=== PATIENT | male | born 1935 | race Caucasian/White ===

== ENCOUNTER 2020-04-08 09:03 | Inpatient (IN) | payer MEDICARE, OTHER, SELFPAY ==
[2020-04-08] VITALS (16 sets, daily range): BP systolic 122–205; BP diastolic 50–179; PULSE 78–118; RESP 14–20; TEMP 36.9–38.6; O2SAT 92–98; BMI 25.4; BMI 25.0
--- NOTE | 2020-04-08 07:30 | CT_ITS ---
We are attempting to reach an attending provider to discuss findings. An addendum with communication details will be sent when the communication is complete. STUDY: CT BRAIN WITHOUT CONTRAST REASON FOR EXAM: Male, 84 years old. CVA RADIATION DOSAGE (If Supplied By Facility): CTDIvol = ( 44.99 ) mGy, DLP = ( 846.73 ) mGycm TECHNIQUE: Transaxial CT imaging of the brain was performed without administration of intravenous contrast material. Individualized dose optimization techniques were used for this CT. COMPARISON: No relevant priors. FINDINGS: Normal soft tissue structures. Normal calvarium. Normal size ventricles and extra-axial spaces for the patient''s age. Bilateral white matter microangiopathic ischemic changes of the cerebral hemispheres. A 3 mm hyperdense nodule near the foramen of Rivas, possibly small colloid cyst. Normal basal ganglia and thalami. Normal brainstem. Normal cerebellum. There is no intracranial hemorrhage. There are no findings of an acute ischemic infarction. Normal visualized paranasal sinuses. CT/Brain/Head without Contrast IMPRESSION: Age-related changes. Small hyperdense nodule near the foramen of Rivas, possibly a small colloid cyst. Electronically Signed: Luis Fernando Kapoor DO at 19:44 EDT Tel [phone], Service support ,
--- NOTE | 2020-04-08 09:21 | EKG12_ITS ---
Test Reason : DYSRHYTHMIA Blood Pressure : / mmHG Vent. Rate : 085 BPM Atrial Rate : 085 BPM P-R Int : 222 ms QRS Dur : 090 ms QT Int : 374 ms P-R-T Axes : 034 -43 055 degrees QTc Int : 445 ms Sinus rhythm with 1st degree A-V block Left axis deviation Inferior infarct , age undetermined Abnormal ECG Confirmed by WENDI MCDONALD, ISAMAR ([id number]), newspaper editor MARTHA MARTINEZ ([id number] on 04/09/2020 1:18:14 PM Referred By: ANJUM Confirmed By:ISAMAR ADAME MD
--- NOTE | 2020-04-08 09:21 | RAD_ITS ---
STUDY: X-RAY CHEST REASON FOR EXAM: Male, 84 years old. NAUSEA, VOMITING, WEAKNESS TECHNIQUE: Frontal and lateral views COMPARISON: None. FINDINGS: The lungs are clear and expanded. There is no demonstrated pleural abnormality. Normal size heart. Normal mediastinum and emily. Normal visualized pulmonary arteries. Calcified aortic arch and descending thoracic aorta. Normal visualized thoracic spine. Normal visualized ribs, clavicles, and shoulders. There is no demonstrated abnormality of the visualized soft tissue structures of the upper abdomen. RAD/Chest PA and Lateral IMPRESSION: Normal x-ray examination of the chest. Electronically Signed: Luis Fernando Kapoor DO at 12:48 EDT Tel [phone], Service support ,
--- NOTE | 2020-04-08 09:22 | ED.VIS.GEN ---
History of Present Illness Informant: Patient, Automotive Machinist Onset: Days - 3 days Context: Gradual Onset Timing: Continuous Quality: Generalized weakness Location: Entire body Current Severity: Severe Maximum Severity: Severe Worsened by: Activity Relieved by: Nothing Associated Symptoms: Urinary frequency and urgency Narrative: 84-year-old male history of hypertension hyperlipidemia and insulin-dependent diabetes mellitus presents to the emergency department with 3 days of worsening generalized weakness. He feels like he is not able to do his normal activity level due to fatigue and weakness. He states his entire body feels weak. He endorses worsening urinary frequency and urgency. He was admitted here 3-1/2 years ago for UTI he feels similar today. He has had nausea and 1-2 episodes of nonbloody emesis per day. No diarrhea. No fevers. No hematemesis coffee-ground emesis, melena or hematochezia. He is not lightheaded or dizzy. No chest pain or shortness of breath. He does have a mild dry cough. No contacts with coronavirus patients. No recent travel. No recent antibiotic use. No back pain. No leg pain or swelling. Prior similar symptoms: Yes Recent Illness/Hospitalization: No <Yvan Villalba - Last Filed: 04/08/20 12:17> <Abe Reillyo - Last Filed: 04/08/20 13:07> Chief Complaint: Nausea/Vomiting Past Medical History Prior records reviewed: Yes Past Medical History: - - Hypertension, hyperlipidemia, type 2 diabetes mellitus on insulin, BPH Surgical History: noncontributory Lives: With Family Smoking Status: Former smoker Alcohol: None Drugs: None <Yvan Villalba - Last Filed: 04/08/20 12:17> <Abe Reillyo - Last Filed: 04/08/20 13:07> - Allergies and Home Meds Allergies/Adverse Reactions: Allergies No Known Allergies Allergy (Verified 04/08/20 09:11) Primary Care Physician: [facility] Doctor,Out of [Primary Care Provider] - 2 Days Review of Systems All systems negative except as indicated General: Reports: Malaise. Denies: Chills, Fever, Sweats Eyes: Denies: Visual changes - bilaterally, Diplopia ENT: Denies: Rhinorrhea, Sore throat Cardiovascular: Denies: Chest pain, Palpitations Respiratory: Denies: Dyspnea, Cough, Dyspnea on exertion Gastrointestinal: Reports: Nausea, Vomiting. Denies: Abdominal pain, Diarrhea, Melena, Hematochezia Genitourinary: Reports: Frequency. Denies: Dysuria, Hematuria Musculoskeletal: Denies: Back pain, Extremity Pain Skin: Denies: Rash, Wounds Neurological: Denies: Headache, Weakness, Numbness <Yvan Villalba - Last Filed: 04/08/20 12:17> Physical Exam Vital Signs/Narrative: Vital Signs Temp Pulse Resp BP Pulse Ox 04/08/20 09:12 98.9 F 86 20 H 186/93 H 95 04/08/20 09:08 98.9 F 86 20 H 186/93 H 95 Inital Vital Signs reviewed: Yes General: Well nourished, Well developed, No Acute Distress Head: Normocephalic, Atraumatic Eyes: Perrl, EOMI ENT: Moist mucous membranes, No rhinorrhea Neck: Supple, Nontender Cardiovascular: Regular rate, Regular rhythm, No murmurs Respiratory: No distress, CTA bilaterally, Chest nontender Abdomen: Soft, Nontender, Nondistended, Normal bowel sounds Back: Nontender, Normal Inspection Extremities: Nontender, No edema Skin: Normal color, No rash Neurological: Alert, Oriented x3, Cranial nerves II-XII grossly intact, Normal Strength, Normal Sensation Psychological: Normal affect, Normal Mood <Yvan Villalba - Last Filed: 04/08/20 12:17> Vital Signs/Narrative: Vital Signs Temp Pulse Resp BP Pulse Ox 04/08/20 09:12 98.9 F 86 20 H 186/93 H 95 04/08/20 09:08 98.9 F 86 20 H 186/93 H 95 <Reilly,True - Last Filed: 04/08/20 13:07> Diagnostic/Tx/Re-eval Chest X-Ray - ED: 2 View, Read by ED Physician, No Acute Disease - Rhythm Strip Rhythm Strip: Sinus Rhythm Rate: 80 Ectopy: None - EKG Initial EKG Interpretation: Sinus Rhythm, No Acute Injury Pattern Prior: Unchanged - Medical Decision Making On arrival the patient has normal stable vital signs. His EKG was sinus rhythm. 85 bpm. Prolonged DE interval. No ischemic change. Unchanged from previous EKG. Laboratory work-up including CBC CMP and lipase was remarkable for a white blood cell count of 16. Lactic acid 1.9. Urinalysis shows 1+ bacteria with 5-10 red blood cells, glucose and protein. Chest x-ray was unremarkable. This was interpreted independently by the emergency department physician. Repeat exam patient feels improved after fluids and IV Zofran. He is tolerating by mouth. His repeat abdominal exam is soft and nontender. Urine culture was sent. He was given a dose of IV Zofran. We will discharge him with a prescription for both Keflex and Zofran and he was advised to follow-up closely as an outpatient with his primary care in the next 1 to 2 days or return to the emergency department for worsening symptoms which were discussed. <Yvan Villalba - Last Filed: 04/08/20 12:17> - Medical Decision Making I did perform an independent history physical. Patient presents with dysuria and frequency. He is diabetic. He denies drinking more fluids. He denies weight loss. He denies fever, chills or night sweats. Does report generalized malaise. He states he had a similar presentation 3 to 4 years ago and had a urinary tract infection. He denies history of prostatitis. He denies tenesmus or perianal discomfort. He denies headache, visual, ocular auditory symptoms. Denies neck pain or neck stiffness. He denies cardiac respiratory symptoms. He denies nausea or vomiting. Patient appears not well. Does not appear toxic. HEENT exam is unremarkable. Lungs are clear to auscultation. Heart is regular. Abdomen is soft nontender. There is no CVA tenderness noted. Lower extremity exam is unremarkable. Neuro exam is nonfocal. Patient's white count is elevated. He does have bacteria noted. Urine culture was obtained. He received a dose of Rocephin in the emergency department. He was discharged home with appropriate home-going instructions. <True Reilly - Last Filed: 04/08/20 13:07> ED Disposition <Yvan Villalba - Last Filed: 04/08/20 12:17> <True Reilly - Last Filed: 04/08/20 13:07> - Plan for ED Patient: Disposition: Home or Assisted Living Diagnosis: UTI (urinary tract infection), Uncontrolled type 2 diabetes mellitus, Leukocytosis Instructions: ED CYSTITIS Male Adult Prescriptions: Cephalexin [Keflex] 500 mg PO Q12 #14 cap Prescription Printed Ondansetron [Zofran Odt] 4 mg PO Q8H PRN PRN #15 tab PRN Reason: Nausea Prescription Printed Referrals: [facility],Out of [Primary Care Provider] - 2 Days
--- NOTE | 2020-04-08 09:33 | NURSING ---
NO OLD EKGS
[2020-04-08] MEDS: Ondansetron 4 MG/2 ML Vial IV ×2 (09:59→14:39)
[2020-04-08 10:13] LABS: Mucous, Urine 0 SEEN /hpf (<or=2+); Squamous Epithelial Cells - UA 0 SEEN /hpf (0-5); White Blood Cells 0 SEEN /hpf (0-5)
[2020-04-08 10:20] LABS: Absolute Lymphocyte Count 0.44 X10^3/uL (0.83-4.51); Absolute Neutrophil Count 15.1 X10^3/uL (2.0-7.7); Basophil# 0.02 X10^3/uL; Basophil% 0.1 % (0-1); Color, Urine Yellow (Yellow); Differential Indicated SCAN CRITERIA MET; Eosinophil# 0.01 X10^3/uL; Eosinophils% 0.1 % (0-5); Glucose, Dipstick 1000 mg/dl (Normal); Hematocrit 44.9 % (40-54); Hemoglobin 14.9 g/dL (13.0-16.5); Ketone-Dipstick 5 mg/dl (Negative); Leukocyte Esterase-Dipstick 25 /ul (Negative); Lymphocyte # 0.44 X10^3/ul (4.0); Lymphocyte % 2.6 % (19-41); Mean Corp Hgb Conc 33.2 g/dL (32-36); Mean Corpuscular Hgb 31.4 pg (27.0-32.0); Mean Corpuscular Volume 94.7 fL (80-94); Mean Platelet Vol. 11.8 fl (6.2-12.0); Monocyte# 1.15 X10^3/uL; Monocyte% 6.8 % (0-10); NRBC Flagged by Analyzer 0 % (0-5); Neutrophil # 15.12 X10^3/uL (2.7-7.7); Neutrophil % 89.6 % (47-70); Nitrite-Dipstick Negative (Negative); Occult Blood-Urine 150 /ul (Negative); POSITIVE DIFFERENTIAL YES; Platelet Count 153 K/mm3 (150-450); Protein-Dipstick 100 mg/dl (Negative); RBC Distribution Width CV 15.1 % (11.6-14.6); RBC Distribution Width SD 52.2 fl (35.1-43.9); Red Blood Count 4.74 M/mm3 (4.6-6.2); Specific Gravity, Urine 1.015 (1.002-1.030); Urine Bilirubin Dipstick Negative (Negative); Urine Clarity Sl. Cloudy (Clear); Urine Urobilinogen Normal (Normal); White Blood Count 16.9 K/mm3 (4.4-11.0)
[2020-04-08 10:31] LABS: Bacteria 1+ /hpf (None Seen); Red Blood Cells-Urine 5-10 SEEN /hpf (0-5)
[2020-04-08 10:38] LABS: AST(SGOT) 37 U/L (15-37); Alanine Aminotransfer ALT/SGPT 32 U/L (16-61); Albumin, Serum 3.9 g/dL (3.2-5.0); Alkaline Phosphatase 46 U/L (45-117); Anion Gap 7 (5-15); BUN 23 mg/dL (7-18); BUN/Creat Ratio 13.1 RATIO (10-20); Calcium,Total 9.5 mg/dL (8.5-10.1); Chloride 104 mmol/L (98-107); Creatinine, Serum 1.75 mg/dL (0.70-1.30); EST Glomerular Filtration Rate 40 mL/min (>60); Est Glom Filt Rate - Afr Amer 48 mL/min (>60); Estimated Creatinine Clearance 27.85 ml/min; Globulin 4.1 g/dL (2.2-4.2); Glucose 227 mg/dL (74-106); Lipase 108 U/L (73-393); Potassium 4.1 mmol/L (3.5-5.1); Sodium Level 137 mmol/L (136-145)
[2020-04-08 11:09] LABS: Lactic Acid 1.9 mmol/L (0.4-1.9)
[2020-04-08 11:09] LABS: Differential Comment SCANNED
[2020-04-08] MEDS: Ceftriaxone 1 GM/50 ML BAG IV (12:40)
[2020-04-08] MEDS: Acetaminophen 325 MG Tablet 650 MG PO (12:40)
--- NOTE | 2020-04-08 13:51 | NURSING ---
DR ARREAGA FOR DR BACK
--- NOTE | 2020-04-08 13:56 | NURSING ---
DR ARREAGA IN ROOM
--- NOTE | 2020-04-08 14:09 | HP.PCM_ITS ---
Problem List (1) Stage III chronic kidney disease Status: Chronic (2) Benign prostatic hyperplasia Status: Chronic (3) Hypertension Status: Chronic (4) Hyperlipidemia Status: Chronic (5) Type 2 diabetes mellitus Status: Chronic (6) SIRS (systemic inflammatory response syndrome) Status: Acute (7) Acute cystitis Status: Suspected History of Present Illness Date of Admission: 04/08/20 Chief Complaint: Weakness, nausea and frequency. The patient is a 84 year old M with past medical history as mentioned above presented to the emergency room because of weakness, nausea and urinary frequency. Symptoms started 3 days ago with weakness, generalized, profound weakness, having difficulty ambulating, associated with nausea without vomiting and without relieving or aggravating factors. He mentioned that he has been having urinary frequency, goes to the bathroom to urinate more than usual. He denied hematuria or foul-smelling urine. He denied fever at home but while in the emergency department, he had a fever of 101.1 Fahrenheit. He reported postnasal drip. He denied cough or sputum production. He denied recent travel or sick contacts. He lives with his at his home. He reported couple of times of diarrhea today. Denied abdominal pain. He has history of type 2 diabetes mellitus, has been on insulin and Victoza but his blood glucose not well controlled. He has history of hypertension and he has been on lisinopril and Bystolic. In the emergency department, his blood pressure was elevated. He had a history of benign prostatic hypertrophy and he has been on Flomax. In the emergency department, initially, he was afebrile. Later, he developed fever of 101.9 Fahrenheit, blood pressure became elevated, heart rate was 98 and respiratory rate was 20, pulse ox was 95% on room air. Routine blood work was remarkable for leukocytosis with neutrophilia, BUN of 23, creatinine 4.75 which is chronic. LFT and lipase were normal. EKG revealed normal sinus rhythm and first-degree AV block, no acute segment changes. Urinalysis revealed cloudy urine, negative for nitrite, there was only 25 leukocyte esterase, 0 WBCs and 1+ bacteria. Chest x-ray showed no acute findings. COVID-19 PCR was negative. He is being admitted for SIRS due to probable acute cystitis. Past Medical History Past Medical History (Chronic Problems): Chronic Problems Stage III chronic kidney disease (Chronic) Benign prostatic hyperplasia (Chronic) Hypertension (Chronic) Hyperlipidemia (Chronic) Type 2 diabetes mellitus (Chronic) Allergies No Known Allergies Allergy (Verified 04/08/20 09:11) Home Medications: Ambulatory Orders Medication Instructions Recorded Fenofibrate [Tricor] 145 mg PO DAILY 10/04/16 Nebivolol HCl [Bystolic (Beta 5 mg PO DAILY 10/04/16 Saniya)] Tamsulosin HCl [Flomax] 0.4 mg PO DAILY@1730 #30 capsule 10/07/16 Cephalexin [Keflex] 500 mg PO Q12 #14 cap 04/08/20 Insulin Degludec [Tresiba 20 unit SQ DAILY 04/08/20 Flextouch U-100] Liraglutide [Victoza] 1.8 mg SQ DAILY 04/08/20 Lisinopril [Zestril] 5 mg PO DAILY 04/08/20 Ondansetron [Zofran Odt] 4 mg PO Q8H PRN PRN #15 tab 04/08/20 Surgical History: no surgical history Psychiatric History: No pertinent psych hx Lives: Spouse/ Significant Other, With Family Smoking Status: Former smoker Alcohol: None Drugs: None - *Family History Maternal History Items: No pertinent history Paternal History Items: No pertinent history Review of Systems Constitutional: Reports: Anorexia, Fever, Weakness, Fatigue. Denies: Chills Eyes: Denies: Blurred vision, Double vision, Drainage, Redness HEENT: Reports: Post Nasal Drip. Denies: Difficulty Hearing, Dysphasia, Ear Pain, Eye Pain, Sore Throat Cardiovascular: Denies: Chest Pain, Claudication, Chest Pressure, Heaviness, Light Headedness, Palpitations, Paroxysmal Noc. Dyspnea, Syncope Respiratory: Denies: Cough, Pleuritic Pain, Shortness of Breath, Sputum p roduction, Wheezing Gastrointestinal: Reports: Diarrhea, Nausea, Vomiting. Denies: Abdominal Pain, Constipation Genitourinary: Reports: Frequency. Denies: Dysuria, Hematuria Musculoskeletal: Denies: Arm Pain, Back Pain, Foot Pain Skin: Denies: Dryness, Rash Neurological: Denies: Balance problems, Blurred vision, Double vision, Slurred speech, Confusion, Incoordination, Numbness Psychiatric: Denies: Anxiety, Depression Endocrine: Denies: Change in Body Habitus, Polydipsia, Polyuria VTE Information - Inpt Only VTE Present on Admission: No VTE Mechan Device Prophylaxis: None VTE Pharm Prophylaxis ordered?: Yes Patient Problems: Active and Suspected Problems Acute cystitis (Suspected) SIRS (systemic inflammatory response syndrome) (Acute) - Physical Exam Vitals/I&O's: Vital Signs Temp Pulse Resp BP Pulse Ox 101.1 F H 98 20 H 177/79 H 95 04/08/20 13:48 04/08/20 13:48 04/08/20 13:48 04/08/20 13:48 04/08/20 13:48 Oxygen Delivery Method Room Air Weight: 157 lb 10.088 oz Body Mass Index (BMI) 25.4 Finger Stick Blood Glucose 307 Intake and Output for Last 24 Hours 04/06/20 04/07/20 04/08/20 23:59 23:59 23:59 Intake Total 500 / 500 Balance 500 / 500 General: Alert, Oriented x3, Cooperative, No apparent distress HEENT: Atraumatic, PERRLA, EOMI, Normocephalic Oral: Moist Mucosa, No Gingival or Mucosal Lesions/ Ulcerations Neck: Supple, No JVD, Negative Carotid Bruits, Trachea Midline, Thyroid Normal Size and Texture Lungs: Clear to auscultation, Normal air movement, No rhonchi, No wheeze, No rales, Diminished Cardiovascular: Regular rate, Regular Rhythm, Normal S1, Normal S2, PMI Normal Abdomen: Bowel Sounds Present, Soft, Non Tender, Non-Distended, No Hepato- splenomegaly Extremities: No clubbing, No cyanosis, No edema Skin: No rashes, No breakdown Lymphatic: No Cervical, Supraclavicular, or Inguinal Adenopathy Neurological: Cranial nerves II-XII grossly intact, Motor Exam 5/5 strength throughout Psych/Mental Status: Normal Affect, Appropriate, Alert and oriented to time, place, person, mood and affect Laboratory Results 04/08/20 09:55: WBC 16.9 H, RBC 4.74, Hgb 14.9, Hct 44.9, MCV 94.7 H, MCH 31.4, MCHC 33.2, RDW Std Deviation 52.2 H, RDW Coeff of Bia 15.1 H, Plt Count 153, MPV 11.8, Immature Gran % (Auto) 0.800, Neut % (Auto) 89.6 H, Lymph % (Auto) 2.6 L, [place] % (Auto) 6.8, Eos % (Auto) 0.1, Baso % (Auto) 0.1, Absolute Neuts (auto) 15.1 H, Absolute Lymphs (auto) 0.44 L, Nucleated RBC % 0, Differential Comment SCANNED 04/08/20 09:55: Sodium 137, Potassium 4.1, Chloride 104, Carbon Dioxide 26.0, Anion Gap 7, BUN 23 H, Creatinine 1.75 H, Estim Creat Clear Calc 27.85, Est GFR (MDRD) Af Amer 48 L, Est GFR (MDRD) Non-Af 40 L, BUN/Creatinine Ratio 13.1, Glucose 227 H, Calcium 9.5, Total Bilirubin 1.30 H, AST 37, ALT 32, Alkaline Phosphatase 46, Total Protein 8.0, Albumin 3.9, Globulin 4.1, Albumin/Globulin Ratio 1.0, Lipase 108 04/08/20 09:55: Urine Color Yellow, Urine Clarity Sl. Cloudy, Urine pH 6.0, Ur Specific [place] 1.015, Urine Protein 100 H, Urine Glucose (UA) 1000 H, Urine Ketones 5 H, Urine Occult Blood 150 H, Urine Nitrite Negative, Urine Bilirubin Negative, Urine Urobilinogen Normal, Ur Leukocyte Esterase 25 H, Urine RBC 5-10 SEEN, Urine WBC 0 SEEN, Ur Squamous Epith Cells 0 SEEN, Urine Bacteria 1+, Urine Mucus 0 SEEN 04/08/20 10:40: Lactic Acid 1.9 Laboratory Tests 04/08/20 04/08/20 04/08/20 Range/Units 10:40 09:55 09:55 WBC (4.4-11.0) K/mm3 RBC (4.6-6.2) M/mm3 Hgb (13.0-16.5) g/dL Hct (40-54) % MCV (80-94) fL MCH (27.0-32.0) pg MCHC (32-36) g/dL RDW Std Deviation (35.1-43.9) fl RDW Coeff of Bia (11.6-14.6) % Plt Count (150-450) K/mm3 MPV (6.2-12.0) fl Immature Gran % (Auto) (0.0-0.9) % Neut % (Auto) (47-70) % Lymph % (Auto) (19-41) % [place] % (Auto) (0-10) % Eos % (Auto) (0-5) % Baso % (Auto) (0-1) % Absolute Neuts (auto) (2.0-7.7) X10^3/uL Absolute Lymphs (auto) (0.83-4.51) X10^3/uL Nucleated RBC % (0-5) % Differential Comment Sodium 137 (136-145) mmol/L Potassium 4.1 (3.5-5.1) mmol/L Chloride 104 (98-107) mmol/L Carbon Dioxide 26.0 (21.0-32.0) mmol/L Anion Gap 7 (5-15) BUN 23 H (7-18) mg/dL Creatinine 1.75 H (0.70-1.30) mg/dL Estim Creat Clear Calc 27.85 ml/min Est GFR (MDRD) Af Amer 48 L (>60) mL/min Est GFR (MDRD) Non-Af 40 L (>60) mL/min BUN/Creatinine Ratio 13.1 (10-20) RATIO Glucose 227 H (74-106) mg/dL Lactic Acid 1.9 (0.4-1.9) mmol/L Calcium 9.5 (8.5-10.1) mg/dL Total Bilirubin 1.30 H (0.20-1.00) mg/dL AST 37 (15-37) U/L ALT 32 (16-61) U/L Alkaline Phosphatase 46 (45-117) U/L Total Protein 8.0 (6.4-8.2) g/dL Albumin 3.9 (3.2-5.0) g/dL Globulin 4.1 (2.2-4.2) g/dL Albumin/Globulin Ratio 1.0 (0.9-2.4) RATIO Lipase 108 (73-393) U/L Urine Color Yellow (Yellow) Urine Clarity Sl. Cloudy (Clear) Urine pH 6.0 (5.0 - 8.0) Ur Specific [place] 1.015 (1.002-1.030) Urine Protein 100 H (Negative) mg/dl Urine Glucose (UA) 1000 H (Normal) mg/dl Urine Ketones 5 H (Negative) mg/dl Urine Occult Blood 150 H (Negative) /ul Urine Nitrite Negative (Negative) Urine Bilirubin Negative (Negative) mg/dL Urine Urobilinogen Normal (Normal) mg/dl Ur Leukocyte Esterase 25 H (Negative) /ul Urine RBC 5-10 SEEN (0-5) /hpf Urine WBC 0 SEEN (0-5) /hpf Ur Squamous Epith Cells 0 SEEN (0-5) /hpf Urine Bacteria 1+ (None Seen) /hpf Urine Mucus 0 SEEN (<or=2+) /hpf 04/08/20 Range/Units 09:55 WBC 16.9 H (4.4-11.0) K/mm3 RBC 4.74 (4.6-6.2) M/mm3 Hgb 14.9 (13.0-16.5) g/dL Hct 44.9 (40-54) % MCV 94.7 H (80-94) fL MCH 31.4 (27.0-32.0) pg MCHC 33.2 (32-36) g/dL RDW Std Deviation 52.2 H (35.1-43.9) fl RDW Coeff of Bia 15.1 H (11.6-14.6) % Plt Count 153 (150-450) K/mm3 MPV 11.8 (6.2-12.0) fl Immature Gran % (Auto) 0.800 (0.0-0.9) % Neut % (Auto) 89.6 H (47-70) % Lymph % (Auto) 2.6 L (19-41) % [place] % (Auto) 6.8 (0-10) % Eos % (Auto) 0.1 (0-5) % Baso % (Auto) 0.1 (0-1) % Absolute Neuts (auto) 15.1 H (2.0-7.7) X10^3/uL Absolute Lymphs (auto) 0.44 L (0.83-4.51) X10^3/uL Nucleated RBC % 0 (0-5) % Differential Comment SCANNED Sodium (136-145) mmol/L Potassium (3.5-5.1) mmol/L Chloride (98-107) mmol/L Carbon Dioxide (21.0-32.0) mmol/L Anion Gap (5-15) BUN (7-18) mg/dL Creatinine (0.70-1.30) mg/dL Estim Creat Clear Calc ml/min Est GFR (MDRD) Af Amer (>60) mL/min Est GFR (MDRD) Non-Af (>60) mL/min BUN/Creatinine Ratio (10-20) RATIO Glucose (74-106) mg/dL Lactic Acid (0.4-1.9) mmol/L Calcium (8.5-10.1) mg/dL Total Bilirubin (0.20-1.00) mg/dL AST (15-37) U/L ALT (16-61) U/L Alkaline Phosphatase (45-117) U/L Total Protein (6.4-8.2) g/dL Albumin (3.2-5.0) g/dL Globulin (2.2-4.2) g/dL Albumin/Globulin Ratio (0.9-2.4) RATIO Lipase (73-393) U/L Urine Color (Yellow) Urine Clarity (Clear) Urine pH (5.0 - 8.0) Ur Specific [place] (1.002-1.030) Urine Protein (Negative) mg/dl Urine Glucose (UA) (Normal) mg/dl Urine Ketones (Negative) mg/dl Urine Occult Blood (Negative) /ul Urine Nitrite (Negative) Urine Bilirubin (Negative) mg/dL Urine Urobilinogen (Normal) mg/dl Ur Leukocyte Esterase (Negative) /ul Urine RBC (0-5) /hpf Urine WBC (0-5) /hpf Ur Squamous Epith Cells (0-5) /hpf Urine Bacteria (None Seen) /hpf Urine Mucus (<or=2+) /hpf Clinical Impression(s) from Imaging Studies Chest X-Ray 04/08/20 09:21 IMPRESSION: Normal x-ray examination of the chest. Electronically Signed: Luis Fernando Kapoor DO at 12:48 EDT Tel [phone], Service support , Assessment/Plan All Active Problems SIRS (systemic inflammatory response syndrome) (Acute) This is an 84 years old male patient presented to the emergency room because of 3 days history of weakness, nausea and dysuria, found to have SIRS attributed to probable acute cystitis and he is being admitted for treatment. #1 SIRS/probable acute cystitis: Initially, patient was afebrile but later, he developed fever of 101.1 Fahrenheit, heart rate was 98, does have leukocytosis with neutrophilia. Urinalysis and chest x-ray reviewed as above. Patient with history of UTI with possible pyelonephritis 3 years ago. Lactic acid was normal. COVID-19 PCR was negative. [facility], urine culture, blood culture, IV fluids, IV Zofran PRN, Tylenol PRN, start empiric IV Rocephin, awaiting COVID-19 PCR, repeat CBC and BMP tomorrow morning, PT OT evaluation and treatment. #2 type 2 diabetes mellitus: Hemoglobin A1c was 10.3% on September,. Blood glucose on admission was 227. Plan: ADA diet, Accu-Cheks, insulin sliding scale, continue Tresiba, hold Victoza, check hemoglobin A1c. #3 hypertension: Blood pressure is elevated, continue lisinopril and Bystolic, start IV lisinopril. #4 stage III chronic kidney disease: Creatinine was 1.73 years ago, today it is 1.7 as well. Stable at baseline. No blood work in the system since 2017. Plan to monitor. #5 benign prostatic hypertrophy: Continue Flomax. #6 DVT prophylaxis: Subcu heparin. This note was generated with [employer] dictation software. It may contain incorrect words, spelling, and punctuation that were not noted in checking the note before signing. OBSV E&M: 95004 Initial observation care L3
--- NOTE | 2020-04-08 14:13 | NURSING ---
323 SIRS, PROBABLE ACUTE CYSTITIS WHITLEY
[2020-04-08 15:25] LABS: Probe Check PASS; Specimen Processing Control PASS
--- NOTE | 2020-04-08 15:59 | ED.RN ---
attempt to contact pt's , unable to get a hold of her at this time
[2020-04-08] MEDS: 0.9% Normal Saline 1,000 ML 100 ML IV ×2 (17:00→23:21)
[2020-04-08 17:56] LABS: Bedside Glucose 164 mg/dL (70-110)
--- NOTE | 2020-04-08 18:25 | NURSING ---
Aide called this nurse and charge nurse in the room. When aide rounded, pt was on the floor. Pt just arrived to floor from ED and was set up to eat dinner. Pt states he was trying to get up but does not know why. This nurse had explained how to call for help just approx 10 min prior to fall and showed him the call light. pt seemed like he understood. pt was incont of stool in his attends. this nurse performed neuro assessment and pt very agitated with quesitons.
[2020-04-08] MEDS: Insulin Lispro 100 UNIT/ML INSULN.PEN SC (18:33)
--- NOTE | 2020-04-08 18:38 | NURSING ---
Dr. Lane aware of fall. No orders , continue plan of care and continue to monitor pt.
--- NOTE | 2020-04-08 18:57 | EKG12_ITS ---
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 Rate : 102 BPM Atrial Rate : 102 BPM P-R Int : 210 ms QRS Dur : 088 ms QT Int : 356 ms P-R-T Axes : 052 -32 061 degrees QTc Int : 463 ms Sinus rhythm with 1st degree A-V block Left axis deviation Borderline Prolonged QT Confirmed by ALEN MCDONALD, SAIRA ([id number]), editor [employer] MARTHA MARTINEZ ([id number]) on 04/18/2020 8:38:33 AM Referred By: PREETI Confirmed By:JANICE LOWRY MD
--- NOTE | 2020-04-08 19:00 | CT_ITS ---
STUDY: CTA HEAD AND NECK WITH CONTRAST REASON FOR EXAM: Male, 84 years old. STROKE RADIATION DOSAGE (If Supplied By Facility): CTDIvol = ( 13.73 ) mGy, DLP = ( 695.58 ) mGycm TECHNIQUE: CT angiography was performed with a multi-detector CT scanner. Data acquisition was obtained from the skull base through the vertex following intravenous administration of 100ML ISOVUE 370. MIP images were reconstructed from the axial data set. Post-processing of the angiographic images was performed, with multiplanar reformation and 3D reconstruction. Individualized dose optimization techniques were used for this CT. COMPARISON: No relevant priors. FINDINGS: Normal bilateral petrous carotid arteries. Normal right cavernous carotid artery with a normal supraclinoid bifurcation. Normal left cavernous carotid artery with a normal supraclinoid bifurcation. Normal right A1 segments of the anterior cerebral artery. Normal left A1 segments of the anterior cerebral artery. Normal intact anterior communicating artery (ACOM). Normal bilateral A2 segments of the anterior cerebral arteries. Normal right M1 and M2 segments of the middle cerebral arteries, with a normal M1 bifurcation. Normal left M1 and M2 segments of the middle cerebral arteries, with a normal M1 bifurcation. Hypoplastic posterior communicating arteries (PCOM). Normal bilateral vertebral arteries. Minimal focal narrowing at the mid segment of the basilar artery with a normal basilar bifurcation. The visualized bilateral superior cerebellar (SCA) arteries are normal. Normal bilateral P1, P2 and visualized P3 segments of the posterior cerebral arteries. There is no demonstrated aneurysm of the round [place] of [place]. There is no demonstrated abnormality of the visualized brain. AORTIC ARCH: Calcified visualized aortic arch. Normal origins of the brachiocephalic, left common carotid, and left subclavian arteries. RIGHT CAROTID ARTERIES: Normal right common carotid artery (CCA). Mild atherosclerotic calcifications at the right common carotid bulb. Normal origin of the right internal carotid (ICA) artery without a hemodynamically significant stenosis. Normal visualized cervical portion of the right internal carotid artery. Normal origin of the right external carotid artery (ECA). LEFT CAROTID ARTERIES: Normal left common carotid artery (CCA). Mild atherosclerotic calcifications at the left common carotid bulb. Normal origin of the left internal carotid (ICA) artery without a hemodynamically significant stenosis. Normal visualized cervical portion of the left internal carotid artery. Normal origin of the left external carotid artery (ECA). VERTEBRAL ARTERIES: Normal bilateral vertebral arteries. CT/CTA Head AND Neck W/ Contrast IMPRESSION: Minimal focal narrowing at the mid segment of the basilar artery. Hypoplastic posterior communicating arteries. Mild atherosclerotic calcifications at carotid bulbs without hemodynamically significant stenosis. N.B. : The above information has been verbally conveyed by Luis Fernando Kapoor DO to Ar Lopez RN, on 04/08/2020 20:03:09 (ET). Electronically Signed: Luis Fernando Kapoor DO at 19:53 EDT Tel [phone], Service support ,
[2020-04-08] MEDS: hydrALAZINE 20 MG/ML Vial 10 MG IV (19:15)
--- NOTE | 2020-04-08 19:15 | NURSING ---
Pt in imaging for stat CTA
[2020-04-08 19:21] LABS: Bedside Glucose 204 mg/dL (70-110)
[2020-04-08 19:22] LABS: Hemoglobin A1c 6.8 % (3.8-5.6)
--- NOTE | 2020-04-08 19:32 | NURSING ---
Gaby patients is on the phone with Dr. Chandler and is aware of that her fell and having stroke like symptoms and is in Radiology at this time.
--- NOTE | 2020-04-08 20:10 | PCM.PN.BLA ---
Progress Note Time: 18:50: Rapid response was called for patient who was admitted this afternoon. Reason for rapid was progressive lethargy. Patient had gotten up from the bed and had falling down. He appeared confused. He was said to be well at the time of admission. He got to the floor around 4:30 PM. He answered questions appropriately. He was found on the floor around 6:25pm. He was last seen by his nurse at 6:15pm. His blood pressure at the bedside showed 205/179, this was repeated and showed 202/93. Patient was lethargic. Unresponsive to commands compared to previous. Falls back readily to sleep. Upon both verbal and sternal stimulation, patient will open eyes to answer questions. Blood glucose was 204. Patient had a slight left facial droop, unable to lift his right upper and lower extremity, right upper extremity more than right lower extremity. Stroke alert was called at 1854. NIHSS score was 20. TPA form filled out Patient was sent to CT scan, CT of the head and neck also requested. Whilst waiting for tele-neurology, repeat NIHSS score was 11. Patient appeared to be more awake. He was able to move his extremities. His right upper extremity was now back to normal as well as the left lower extremity. Discussed with [facility] tele-neurology; patient not a candidate for TPA. His repeat blood pressure was 188/115 We will transfer patient to PCU, follow-up on stroke protocol, follow-up on CT of the head as well as CTA of the head and neck. MRI of the brain, 2D echo, lipid profile in a.m. STROKE Vital Signs/Narrative: Vital Signs Temp Pulse Resp BP Pulse Ox 04/08/20 19:50 117 H 20 H 188/115 H 96 04/08/20 19:35 118 H 16 181/95 H 96 04/08/20 19:20 117 H 155/71 H 93 04/08/20 19:15 96 129/50 H 04/08/20 19:00 100 202/93 H 04/08/20 18:54 101.4 F H 96 205/179 H 96 04/08/20 17:29 98.8 F 78 18 179/74 H 98 04/08/20 16:11 99.2 F H 87 14 137/50 H
--- NOTE | 2020-04-08 20:20 | NURSING ---
spoke with Wyatt, pts step son whom states that pt has fallen frequently sometimes multiple times a day but when asked pt in admit questions if he fell in last 3 months pt said no. Wyatt also stated that Mr. Sanchez per step daughter in law acts like he has stroke symptoms in the last month as she is a retired nurse. Both above things were mentioned to dr. Chandler.
[2020-04-08 21:13] LABS: International Normalized Ratio 1.2; Prothrombin Time (Protime)PT. 14.6 SECONDS (11.7-14.9)
[2020-04-08 21:53] LABS: Thyroid Stim Hormone (TSH) 3.03 uIU/mL (0.358-3.74)
[2020-04-08] MEDS: Menthol/Lanolin/Calamine/Znox 113 GM Tube 1 APPLIC TOPICAL (23:10)
[2020-04-08] MEDS: Heparin Injection (Vial) 5,000 UNIT/ML VIAL 5000 UNIT SC (23:20)
[2020-04-08] MEDS: 0.9% Saline Lock 10 ML Syringe IV (23:26)
[2020-04-08 23:31] LABS: Bedside Glucose 259 mg/dL (70-110)
[2020-04-09] VITALS (13 sets, daily range): BP systolic 97–182; BP diastolic 48–91; PULSE 64–103; RESP 14–20; TEMP 36.8–39.3; O2SAT 94–99; BMI 25.0
[2020-04-09] MEDS: Ondansetron 4 MG/2 ML Vial IV (03:22)
[2020-04-09] MEDS: 0.9% Saline Lock 10 ML Syringe IV (03:23)
[2020-04-09] MEDS: Acetaminophen 650 MG Suppository RECTAL (04:59)
[2020-04-09] MEDS: Heparin Injection (Vial) 5,000 UNIT/ML VIAL 5000 UNIT SC ×3 (05:52→21:45)
[2020-04-09 05:58] LABS: Absolute Lymphocyte Count 0.46 X10^3/uL (0.83-4.51); Absolute Neutrophil Count 12.4 X10^3/uL (2.0-7.7); Basophil# 0.02 X10^3/uL; Basophil% 0.1 % (0-1); Eosinophil# 0.13 X10^3/uL; Eosinophils% 0.9 % (0-5); Hematocrit 40.6 % (40-54); Hemoglobin 13.3 g/dL (13.0-16.5); Lymphocyte # 0.46 X10^3/ul (4.0); Lymphocyte % 3.2 % (19-41); Mean Corp Hgb Conc 32.8 g/dL (32-36); Mean Corpuscular Hgb 31.6 pg (27.0-32.0); Mean Corpuscular Volume 96.4 fL (80-94); Monocyte# 1.33 X10^3/uL; Monocyte% 9.2 % (0-10); NRBC Flagged by Analyzer 0 % (0-5); Neutrophil # 12.42 X10^3/uL (2.7-7.7); Neutrophil % 85.9 % (47-70); POSITIVE DIFFERENTIAL YES; Platelet Count 126 K/mm3 (150-450); RBC Distribution Width CV 15.6 % (11.6-14.6); RBC Distribution Width SD 54.8 fl (35.1-43.9); Red Blood Count 4.21 M/mm3 (4.6-6.2); White Blood Count 14.5 K/mm3 (4.4-11.0)
[2020-04-09 06:22] LABS: Differential Indicated SCAN CRITERIA MET
[2020-04-09 06:32] LABS: Anion Gap 7 (5-15); BUN 29 mg/dL (7-18); BUN/Creat Ratio 15.7 RATIO (10-20); Calcium,Total 8.4 mg/dL (8.5-10.1); Chloride 109 mmol/L (98-107); Cholesterol 117 mg/dL (200); Creatinine, Serum 1.85 mg/dL (0.70-1.30); EST Glomerular Filtration Rate 37 mL/min (>60); Est Glom Filt Rate - Afr Amer 45 mL/min (>60); Estimated Creatinine Clearance 26.34 ml/min; Glucose 172 mg/dL (74-106); High Density Lipoprotein 27 mg/dL; Potassium 3.3 mmol/L (3.5-5.1); Sodium Level 140 mmol/L (136-145); Triglycerides 166 mg/dL; Very Low Density Lipoprotein 33 mg/dL (5-40)
[2020-04-09 06:55] LABS: Differential Comment SCANNED
[2020-04-09 07:00] LABS: Bedside Glucose 163 mg/dL (70-110)
--- NOTE | 2020-04-09 07:45 | NURSING ---
This RN was asked to round and assess patient with MD at bedside. After evaluation by and this RN, Dr. Sloan determined that the patient was not confused and seemed to have all the appropriate recollection and memory of the events since the patients admission to the hospital. The patient was adamant with MD and this RN that he did not fall while on [facility] and that he did not have a stroke and is unsure why we are treatment him as such. He feels as though the story of him falling has been either made up or misconstrued. He continued to express his frustration with not being able to eat d/t need for Speech therapy evaluation. Upon evaluation by MD it was noted that the patient does have a very small facial droop detected on the right side of his mouth, however the patient sates that he talks out of the side of his mouth and it always looks that way. The patient is easily able to lift/raise the right side of his mouth when prompted. and this RN discussed with patient his testing results up to this point and it was recommended to him to have MRI to R/O stroke. After this discussion and explanation by MD, patient expressed his refusal to have MRI and felt that it was not necessary. told RN to DC MRI, ECHO, NIHSS assessments, repeat bedside dysphagia screen and if he passes then allow him to eat.
--- NOTE | 2020-04-09 08:20 | PCM.PROGNOTE ---
Patient Problems: Active and Suspected Problems Acute cystitis (Suspected) SIRS (systemic inflammatory response syndrome) (Acute) Subjective: Chief complaint: Follow-up after admission for SIRS attributed to probable acute cystitis. Patient seen and examined. After admission last evening and according to the nursing staff, patient was found on the floor, confused. Shortly after, he became lethargic, rapid response team called. Patient was lethargic and drowsy according to nursing staff. He had minimal facial droop on the right side. There was no focal weakness. He is still having spikes of fever, blood pressure is borderline but improved, pulse ox is 99% on 2 L. Today, patient is alert and noted x3. Actually, he is frustrated about what happened yesterday and he stated that none of the mentioned above happened. He stated that he has been lucid and know exactly what is going on. He states that he never been confused or disoriented. He stated that he did not fill from the bed yesterday. He mentioned that he speaks out of the left corner of his mouth which is usual for him. He was able to lift. Right corner of his mouth and there was no facial droop. He mentioned that he is frustrated about this trauma happened yesterday evening. In talking about stroke, he refused to go for MRI. - Physical Exam Vitals/I&O's: Vital Signs Temp Pulse Resp BP Pulse Ox 98.3 F 64 20 H 115/48 L 99 04/09/20 07:21 04/09/20 07:21 04/09/20 07:21 04/09/20 07:21 04/09/20 07:21 Oxygen Flow Rate (L/min) 2 Oxygen Delivery Method Nasal Cannula Weight: 155 lb Body Mass Index (BMI) 25.0 Finger Stick Blood Glucose 204 Intake and Output for Last 24 Hours 04/07/20 04/08/20 04/09/20 23:59 23:59 23:59 Intake Total 1185 / 1185 1236.67 / 1236.67 Output Total 200 / 200 Balance 1185 / 1185 1036.67 / 1036.67 General: Alert, Oriented x3, Cooperative, No apparent distress HEENT: Atraumatic, PERRLA, EOMI, Normocephalic Oral: Moist Mucosa, No Gingival or Mucosal Lesions/ Ulcerations Neck: Supple, No JVD, Negative Carotid Bruits, Trachea Midline, Thyroid Normal Size and Texture Lungs: Clear to auscultation, Normal air movement, No rhonchi, No wheeze, No rales, Diminished Cardiovascular: Regular rate, Regular Rhythm, Normal S1, Normal S2, PMI Normal Abdomen: Bowel Sounds Present, Soft, Non Tender, Non-Distended, No Hepato-splenomegaly Extremities: No clubbing, No cyanosis, No edema Skin: No rashes, No breakdown Lymphatic: No Cervical, Supraclavicular, or Inguinal Adenopathy Neurological: Cranial nerves II-XII grossly intact, Motor Exam 5/5 strength throughout Psych/Mental Status: Normal Affect, Appropriate, Alert and oriented to time, place, person, mood and affect Laboratory Results 04/08/20 09:55: WBC 16.9 H, RBC 4.74, Hgb 14.9, Hct 44.9, MCV 94.7 H, MCH 31.4, MCHC 33.2, RDW Std Deviation 52.2 H, RDW Coeff of Bia 15.1 H, Plt Count 153, MPV 11.8, Immature Gran % (Auto) 0.800, Neut % (Auto) 89.6 H, Lymph % (Auto) 2.[address] L, [place] % (Auto) 6.8, Eos % (Auto) 0.1, Baso % (Auto) 0.1, Absolute Neuts (auto) 15.1 H, Absolute Lymphs (auto) 0.44 L, Nucleated RBC % 0, Differential Comment SCANNED 04/08/20 09:55: Sodium 137, Potassium 4.1, Chloride 104, Carbon Dioxide 26.0, Anion Gap 7, BUN 23 H, Creatinine 1.75 H, Estim Creat Clear Calc 27.85, Est GFR (MDRD) Af Amer 48 L, Est GFR (MDRD) Non-Af 40 L, BUN/Creatinine Ratio 13.1, Glucose 227 H, Calcium 9.5, Total Bilirubin 1.30 H, AST 37, ALT 32, Alkaline Phosphatase 46, Total Protein 8.0, Albumin 3.9, Globulin 4.1, Albumin/Globulin Ratio 1.0, Lipase 108 04/08/20 09:55: Urine Color Yellow, Urine Clarity Sl. Cloudy, Urine pH 6.0, Ur Specific Gilbert 1.015, Urine Protein 100 H, Urine Glucose (UA) 1000 H, Urine Ketones 5 H, Urine Occult Blood 150 H, Urine Nitrite Negative, Urine Bilirubin Negative, Urine Urobilinogen Normal, Ur Leukocyte Esterase 25 H, Urine RBC 5-10 SEEN, Urine WBC 0 SEEN, Ur Squamous Epith Cells 0 SEEN, Urine Bacteria 1+, Urine Mucus 0 SEEN 04/08/20 09:55: Hemoglobin A1c 6.8 H 04/08/20 10:00: TSH 3.03 04/08/20 10:40: Lactic Acid 1.9 04/08/20 14:10: COVID-19 ([facility]) Negative 04/08/20 17:16: POC Glucose 164 H 04/08/20 18:49: POC Glucose 204 H 04/08/20 20:30: PT 14.6, INR 1.2 04/08/20 23:04: POC Glucose 259 H 04/09/20 05:45: WBC 14.5 H, RBC 4.21 L, Hgb 13.3, Hct 40.6, MCV 96.4 H, MCH 31.6, MCHC 32.8, RDW Std Deviation 54.8 H, RDW Coeff of Bia 15.6 H, Plt Count 126 L, MPV 11.0, Immature Gran % (Auto) 0.700, Neut % (Auto) 85.9 H, Lymph % (Auto) 3.[address] L, [place] % (Auto) 9.2, Eos % (Auto) 0.9, Baso % (Auto) 0.1, Absolute Neuts (auto) 12.4 H, Absolute Lymphs (auto) 0.46 L, Nucleated RBC % 0, Differential Comment SCANNED 04/09/20 05:45: Sodium 140, Potassium 3.3 L, Chloride 109 H, Carbon Dioxide 24.0, Anion Gap 7, BUN 29 H, Creatinine 1.85 H, Estim Creat Clear Calc 26.34, Est GFR (MDRD) Af Amer 45 L, Est GFR (MDRD) Non-Af 37 L, BUN/Creatinine Ratio 15.7, Glucose 172 H, Calcium 8.4 L, Triglycerides 166, Cholesterol 117, LDL Cholesterol 57, VLDL Cholesterol 33, HDL Cholesterol 27 L 04/09/20 06:43: POC Glucose 163 H Clinical Impression(s) from Imaging Studies Brain CT 04/08/20 07:30 IMPRESSION: Age-related changes. Small hyperdense nodule near the foramen of Rivas, possibly a small colloid cyst. Electronically Signed: Luis Fernando Kapoor DO at 19:44 EDT Tel [phone], Service support , ADDENDUM: 04/08/202008 IMPRESSION: Age-related changes. Small hyperdense nodule near the foramen of Rivas, possibly a small colloid cyst. N.B. : The above information has been verbally conveyed by Luis Fernando Kapoor DO to Ar Lopez RN, on 04/08/2020 20:02:53 (ET). Electronically Signed: Luis Fernando Kapoor DO at 19:44 EDT Tel [phone], Service support , Chest X-Ray 04/08/20 09:21 IMPRESSION: Normal x-ray examination of the chest. Electronically Signed: Luis Fernando Kapoor DO at 12:48 EDT Tel [phone], Service support , Head/Neck CTA 04/08/20 19:00 IMPRESSION: Minimal focal narrowing at the mid segment of the basilar artery. Hypoplastic posterior communicating arteries. Mild atherosclerotic calcifications at carotid bulbs without hemodynamically significant stenosis. N.B. : The above information has been verbally conveyed by Luis Fernando Kapoor DO to Ar Lopez RN, on 04/08/2020 20:03:09 (ET). Electronically Signed: Luis Fernando Kapoor DO at 19:53 EDT Tel [phone], Service support , Current Medications Acetaminophen (Tylenol) 650 mg PO Q6H PRN PRN PRN Reason: Pain Score 1-10/Temp > 100.7 F Acetaminophen (Tylenol) 650 mg RECTAL Q6H PRN PRN PRN Reason: fever >100.7 Last Admin: 04/09/20 04:59 Dose: 650 mg Documented by: Aspirin (Aspirin, Baby) 81 mg PO DAILY@0800 [facility] Atorvastatin Calcium (Lipitor) 40 mg PO QHS LUIS ARMANDO Last Admin: 04/08/20 23:11 Dose: Not Given Documented by: Calamine/Phenol (Calmoseptine Ointment) 1 applic TOPICAL BID [facility]; Protocol Last Admin: 04/08/20 23:10 Dose: 1 applic Documented by: Dextrose (D50w Syringe) 0 gm IV X1 PRN; Protocol PRN Reason: Hypoglycemia Famotidine (Pepcid) 20 mg PO DAILY [facility] Fenofibrate (Tricor) 145 mg PO DAILYCM [facility] Fenofibrate (Tricor) 145 mg PO DAILY LUIS ARMANDO Glucagon () 1 mg IM .X1 PRN PRN Reason: Hypoglycemia Heparin Sodium (Porcine) (Heparin Na) 5,000 unit SC Q8 [facility] Last Admin: 04/09/20 05:52 Dose: 5,000 unit Documented by: Sodium Chloride () 1,000 mls @ 100 mls/hr IV .Q10H LUIS ARMANDO Last Infusion: 04/09/20 07:15 Dose: 100 mls/hr Documented by: Ceftriaxone Sodium 2 gm/ (Sodium Chloride) 50 mls @ 100 mls/hr IV Q24 LUIS ARMANDO Sodium Chloride () 250 mls @ 15 mls/hr IV .[id number] PRN PRN Reason: Saline Flush Sodium Chloride () 250 mls @ 15 mls/hr IV .[id number] PRN PRN Reason: Additional IVPB Infusion Insulin Glargine (Lantus (Bkc)) 20 units SC DAILY [facility] Insulin Human Lispro (Humalog Kwikpen (Bkc)) 0 unit SC ACHS [facility]; Protocol Last Admin: 04/09/20 06:45 Dose: Not Given Documented by: Nutritional Formula (Lactose Free) (Glucerna Shake) 120 ml PO 4X/DAY [facility] Last Admin: 04/08/20 23:11 Dose: Not Given Documented by: Ondansetron HCl (Zofran) 4 mg IV Q8H PRN PRN PRN Reason: NAUSEA/VOMITING Last Admin: 04/09/20 03:22 Dose: 4 mg Documented by: Sodium Chloride () 10 - 40 ml IV UD PRN PRN Reason: SALINE FLUSH Last Admin: 04/09/20 03:23 Dose: 10 ml Documented by: Tamsulosin HCl (Flomax) 0.4 mg PO DAILY@1730 [facility] Last Admin: 04/08/20 18:35 Dose: Not Given Documented by: Zolpidem Tartrate (Ambien (Generic)) 5 mg PO QHS PRN PRN PRN Reason: INSOMNIA Medical Necessity - Tobacco Use Smoking Status: Former smoker Assessment/Plan All Active Problems SIRS (systemic inflammatory response syndrome) (Acute) This is an 84 years old male patient presented to the emergency room because of 3 days history of weakness, nausea and dysuria, found to have SIRS attributed to probable acute cystitis and he is being admitted for treatment. He had an episode after admission were reportedly, he was found in the floor, confused and lethargic but patient is denying. #1 SIRS/probable acute cystitis: He is on IV Rocephin. Still having spikes of fever, WBC is trending down. Blood pressures this morning is borderline but improved, heart rate stable. Unfortunately, blood culture was not done. Chest x-ray showed no acute findings. Lactic acid was normal. COVID-19 PCR was negative. Plan: Stat blood culture, repeat CBC and BMP tomorrow morning, continue same treatment. #2 reported fall/confusion/lethargy: Not sure if this is real. Patient is very frustrated about what happened last evening and overnight. He thinks that he was not confused, he did not fall. He mentioned that he speaks from the corner of his mouth, was able to lift the right corner of his mouth. Denied any other focal weaknesses. CTA head and neck showed no acute findings. He refused to go for MRI today. At this time, I doubt the patient had a stroke or TIA. Plan: Cancel MRI, cancel 2D echocardiogram, cancel NIH. #3 type 2 diabetes mellitus: Blood sugar has been in the 200s, hemoglobin A1c was 10.3% on September,. Continue Tresiba and sliding scale, resume Victoza. #4 hypertension: This morning, blood pressure is borderline but improved. Patient is asymptomatic. Lisinopril and Bystolic held. #5 stage III chronic kidney disease: Creatinine was 1.73 years ago, today it is 1.7 as well. Today's creatinine is 1.85, close to baseline. No blood work in the system since 2017. Plan to monitor. #6 benign prostatic hypertrophy: Continue Flomax. #7 DVT prophylaxis: Subcu heparin. This note was generated with [employer] software. It may contain incorrect words, spelling, and punctuation that were not noted in checking the note before signing. Inpatient E&M: 84681 Subs Hosp L2
[2020-04-09] MEDS: Aspirin 81 MG TAB.CHEW PO (09:57)
[2020-04-09] MEDS: Menthol/Lanolin/Calamine/Znox 113 GM Tube 1 APPLIC TOPICAL ×2 (09:57→21:46)
[2020-04-09] MEDS: Fenofibrate 145 MG Tablet PO (09:57)
[2020-04-09] MEDS: Famotidine 20 MG Tablet PO (09:58)
[2020-04-09] MEDS: 0.9% Normal Saline 1,000 ML 100 ML IV ×2 (10:03→19:42)
--- NOTE | 2020-04-09 11:45 | CASEMGMT ---
RN CM Face to Face with patient for initial transition planning/care coordination assessment. RN CM introduced self and role at [facility]. Patient lying in bed, alert and oriented. Patient willing to participate in assessment and is able to answer all questions appropriately. Care providers, pharmacy, and demographics verified. Patient wishes to discharge home, denies need for home health at this time. Patient states he has no further needs or concerns at this time. CM to follow for discharge planning needs that may arise. PCP: Matt Sylvester Specialists: none Preferred Pharmacy: [facility] Insurance: Андрей KERNS Prescription Benefit: yes Living Will/HPOA: yes Gaby Sanchez LNOK: Living Arrangements: Patient lives with in a condo with ramp to enter the home. Patient states that he is independent at home. Transportation: self/ step son DME/HHC: Patient states he has shower chair, cane, walker, grab bars at home. Patient denies previous HHC. Disposition Plan: Patient to discharge home with family support and follow-up plans in place. Reena CAZARES, RN, CM
[2020-04-09] MEDS: Insulin Lispro 100 UNIT/ML INSULN.PEN SC ×3 (12:11→21:44)
[2020-04-09 12:15] LABS: Bedside Glucose 187 mg/dL (70-110)
[2020-04-09] MEDS: Tamsulosin HCl 0.4 MG Capsule PO (16:52)
[2020-04-09 17:00] LABS: Bedside Glucose 166 mg/dL (70-110)
[2020-04-09] MEDS: Atorvastatin Calcium 40 MG Tablet PO (21:45)
[2020-04-09 22:00] LABS: Bedside Glucose 174 mg/dL (70-110)
[2020-04-09] MEDS: Acetaminophen 325 MG Tablet 650 MG PO (22:00)
[2020-04-10] VITALS (8 sets, daily range): BP systolic 132–149; BP diastolic 63–88; PULSE 65–112; RESP 16–18; TEMP 36.7–37.7; O2SAT 92–98; BMI 25.0
[2020-04-10] MEDS: Heparin Injection (Vial) 5,000 UNIT/ML VIAL 5000 UNIT SC ×3 (05:26→21:20)
[2020-04-10] MEDS: 0.9% Normal Saline 1,000 ML 100 ML IV (05:36)
[2020-04-10 06:47] LABS: Absolute Lymphocyte Count 0.48 X10^3/uL (0.83-4.51); Basophil# 0.02 X10^3/uL; Basophil% 0.2 % (0-1); Differential Indicated SCAN CRITERIA MET; Eosinophil# 0.11 X10^3/uL; Hematocrit 40.1 % (40-54); Hemoglobin 12.8 g/dL (13.0-16.5); Lymphocyte # 0.48 X10^3/ul (4.0); Lymphocyte % 4.5 % (19-41); Mean Corp Hgb Conc 31.9 g/dL (32-36); Mean Corpuscular Hgb 31.4 pg (27.0-32.0); Mean Corpuscular Volume 98.5 fL (80-94); Mean Platelet Vol. 11.6 fl (6.2-12.0); Monocyte# 0.93 X10^3/uL; Monocyte% 8.8 % (0-10); NRBC Flagged by Analyzer 0 % (0-5); Neutrophil # 8.98 X10^3/uL (2.7-7.7); Neutrophil % 84.9 % (47-70); POSITIVE DIFFERENTIAL YES; POSITIVE MORPHOLOGY YES; Platelet Count 107 K/mm3 (150-450); RBC Distribution Width SD 57.3 fl (35.1-43.9); Red Blood Count 4.07 M/mm3 (4.6-6.2); White Blood Count 10.6 K/mm3 (4.4-11.0)
[2020-04-10 07:00] LABS: Bedside Glucose 125 mg/dL (70-110)
[2020-04-10 07:01] LABS: Differential Comment SCANNED
[2020-04-10 07:18] LABS: Anion Gap 6 (5-15); BUN 30 mg/dL (7-18); Calcium,Total 7.9 mg/dL (8.5-10.1); Chloride 111 mmol/L (98-107); Creatinine, Serum 1.76 mg/dL (0.70-1.30); EST Glomerular Filtration Rate 39 mL/min (>60); Est Glom Filt Rate - Afr Amer 48 mL/min (>60); Estimated Creatinine Clearance 27.69 ml/min; Glucose 132 mg/dL (74-106); Potassium 3.5 mmol/L (3.5-5.1); Sodium Level 140 mmol/L (136-145)
--- NOTE | 2020-04-10 08:02 | PCM.PROGNOTE ---
Patient Problems: Active and Suspected Problems Acute cystitis (Suspected) SIRS (systemic inflammatory response syndrome) (Acute) Subjective: Chief complaint: Follow-up after admission for SIRS due to acute cystitis. Patient seen and examined. No acute events overnight. He is still complaining of weakness and poor appetite. He had a spike of fever last night, afebrile this morning, other vital signs are stable - Physical Exam Vitals/I&O's: Vital Signs Temp Pulse Resp BP Pulse Ox 98.0 F 95 18 141/63 H 98 04/10/20 02:25 04/10/20 07:00 04/10/20 02:25 04/10/20 02:25 04/10/20 02:25 Oxygen Flow Rate (L/min) 0.5 Oxygen Delivery Method Room Air Weight: 154 lb 15.759 oz Body Mass Index (BMI) 25.0 Finger Stick Blood Glucose 204 Intake and Output for Last 24 Hours 04/08/20 04/09/20 04/10/20 23:59 23:59 23:59 Intake Total 1185 / 1185 2686.67 / 2686.67 990 / 990 Output Total 200 / 200 Balance 1185 / 1185 2486.67 / 2486.67 990 / 990 General: Alert, Oriented x3, Cooperative, No apparent distress HEENT: Atraumatic, PERRLA, EOMI, Normocephalic Oral: Moist Mucosa, No Gingival or Mucosal Lesions/ Ulcerations Neck: Supple, No JVD, Negative Carotid Bruits, Trachea Midline, Thyroid Normal Size and Texture Lungs: Clear to auscultation, Normal air movement, No rhonchi, No wheeze, No rales, Diminished Cardiovascular: Regular rate, Regular Rhythm, Normal S1, Normal S2, PMI Normal Abdomen: Bowel Sounds Present, Soft, Non Tender, Non-Distended, No Hepato-splenomegaly Extremities: No clubbing, No cyanosis, No edema Skin: No rashes, No breakdown Lymphatic: No Cervical, Supraclavicular, or Inguinal Adenopathy Neurological: Cranial nerves II-XII grossly intact, Neuro grossly intact Psych/Mental Status: Normal Affect, Appropriate, Alert and oriented to time, place, person, mood and affect Microbiology Past 72 Hours 04/08/20 09:55 Urine, Clean Catch Urine Culture - Final Enterococcus faecalis Laboratory Results 04/09/20 12:09: POC Glucose 187 H 04/09/20 16:50: POC Glucose 166 H 04/09/20 21:43: POC Glucose 174 H 04/10/20 06:24: WBC 10.6, RBC 4.07 L, Hgb 12.8 L, Hct 40.1, MCV 98.5 H, MCH 31.4, MCHC 31.9 L, RDW Std Deviation 57.3 H, RDW Coeff of Bia 16.0 H, Plt Count 107 L, MPV 11.6, Immature Gran % (Auto) 0.600, Neut % (Auto) 84.9 H, Lymph % (Auto) 4.5 L, Heard % (Auto) 8.8, Eos % (Auto) 1.0, Baso % (Auto) 0.2, Absolute Neuts (auto) 9.0 H, Absolute Lymphs (auto) 0.48 L, Nucleated RBC % 0, Differential Comment SCANNED 04/10/20 06:24: Sodium 140, Potassium 3.5, Chloride 111 H, Carbon Dioxide 23.0, Anion Gap 6, BUN 30 H, Creatinine 1.76 H, Estim Creat Clear Calc 27.69, Est GFR (MDRD) Af Amer 48 L, Est GFR (MDRD) Non-Af 39 L, BUN/Creatinine Ratio 17.0, Glucose 132 H, Calcium 7.9 L 04/10/20 06:54: POC Glucose 125 H Current Medications Acetaminophen (Tylenol) 650 mg PO Q6H PRN PRN PRN Reason: Pain Score 1-10/Temp > 100.7 F Last Admin: 04/09/20 22:00 Dose: 650 mg Documented by: Acetaminophen (Tylenol) 650 mg RECTAL Q6H PRN PRN PRN Reason: fever >100.7 Last Admin: 04/09/20 04:59 Dose: 650 mg Documented by: Aspirin (Aspirin, Baby) 81 mg PO DAILY@0800 [facility] Last Admin: 04/09/20 09:57 Dose: 81 mg Documented by: Atorvastatin Calcium (Lipitor) 40 mg PO QHS [facility] Last Admin: 04/09/20 21:45 Dose: 40 mg Documented by: Calamine/Phenol (Calmoseptine Ointment) 1 applic TOPICAL BID [facility]; Protocol Last Admin: 04/09/20 21:46 Dose: 1 applic Documented by: Dextrose (D50w Syringe) 0 gm IV X1 PRN; Protocol PRN Reason: Hypoglycemia Famotidine (Pepcid) 20 mg PO DAILY [facility] Last Admin: 04/09/20 09:58 Dose: 20 mg Documented by: Fenofibrate (Tricor) 145 mg PO DAILYCM [facility] Last Admin: 04/09/20 09:57 Dose: 145 mg Documented by: Glucagon () 1 mg IM .X1 PRN PRN Reason: Hypoglycemia Heparin Sodium (Porcine) (Heparin Na) 5,000 unit SC Q8 [facility] Last Admin: 04/10/20 05:26 Dose: 5,000 unit Documented by: Sodium Chloride () 1,000 mls @ 100 mls/hr IV .Q10H [facility] Last Admin: 04/10/20 05:36 Dose: 100 mls/hr Documented by: Ceftriaxone Sodium 2 gm/ (Sodium Chloride) 50 mls @ 100 mls/hr IV Q24 [facility] Last Infusion: 04/09/20 10:53 Dose: Infused Documented by: Sodium Chloride () 250 mls @ 15 mls/hr IV .[id number] PRN PRN Reason: Saline Flush Sodium Chloride () 250 mls @ 15 mls/hr IV .[id number] PRN PRN Reason: Additional IVPB Infusion Insulin Glargine (Lantus (Bkc)) 20 units SC DAILY [facility] Last Admin: 04/09/20 09:59 Dose: 20 units Documented by: Insulin Human Lispro (Humalog Kwikpen (Bkc)) 0 unit SC ACHS [facility]; Protocol Last Admin: 04/09/20 21:44 Dose: 1 u Documented by: Ondansetron HCl (Zofran) 4 mg IV Q8H PRN PRN PRN Reason: NAUSEA/VOMITING Last Admin: 04/09/20 03:22 Dose: 4 mg Documented by: Sodium Chloride () 10 - 40 ml IV UD PRN PRN Reason: SALINE FLUSH Last Admin: 04/09/20 03:23 Dose: 10 ml Documented by: Tamsulosin HCl (Flomax) 0.4 mg PO DAILY@1730 [facility] Last Admin: 04/09/20 16:52 Dose: 0.4 mg Documented by: Zolpidem Tartrate (Ambien (Generic)) 5 mg PO QHS PRN PRN PRN Reason: INSOMNIA Medical Necessity - Tobacco Use Smoking Status: Former smoker Assessment/Plan All Active Problems SIRS (systemic inflammatory response syndrome) (Acute) This is an 84 years old male patient presented to the emergency room because of 3 days history of weakness, nausea and dysuria, found to have SIRS attributed to probable acute cystitis and he is being admitted for treatment. He had an episode after admission were reportedly, he was found in the floor, confused and lethargic but patient is denying. #1 SIRS/acute cystitis: He is on IV Rocephin. Had a spike of fever last night, leukocytosis resolved. Still symptomatic with weakness and poor appetite. Other vital signs are stable. Urine culture revealed Enterococcus faecalis, sensitivity reviewed. Blood cultures pending. Chest x-ray showed no acute findings. Lactic acid was normal. COVID-19 PCR was negative. Plan: Change IV Rocephin to IV ciprofloxacin twice daily according to sensitivity, discontinue IV fluids, PT OT evaluation and treatment. #2 reported fall/confusion/lethargy: Not sure if this is real. Patient remained alert and oriented, denied any focal deficits. Yesterday, he refused MRI brain. CTA head and neck showed no acute findings. #3 type 2 diabetes mellitus: Blood sugar improved, hemoglobin A1c was 10.3% on September,. Continue Tresiba and sliding scale, continue Victoza. #4 hypertension: Blood pressure stable, keep holding lisinopril and Bystolic. #5 stage III chronic kidney disease: Creatinine was 1.73 years ago, today it is 1.7 as well. Today's creatinine is 1.76, stable at baseline. No blood work in the system since 2017. #6 benign prostatic hypertrophy: Continue Flomax. #7 DVT prophylaxis: Subcu heparin. This note was generated with [employer] dictation software. It may contain incorrect words, spelling, and punctuation that were not noted in checking the note before signing. Inpatient E&M: 88671 Subs Hosp L2
[2020-04-10] MEDS: Ciprofloxacin 400 MG/200 ML BAG 200 MG IV (10:14)
[2020-04-10] MEDS: Aspirin 81 MG TAB.CHEW PO (10:15)
[2020-04-10] MEDS: Famotidine 20 MG Tablet PO (10:16)
[2020-04-10] MEDS: Menthol/Lanolin/Calamine/Znox 113 GM Tube 1 APPLIC TOPICAL ×2 (11:03→21:27)
[2020-04-10] MEDS: Acetaminophen 325 MG Tablet 650 MG PO ×2 (11:07→20:40)
[2020-04-10] MEDS: Fenofibrate 145 MG Tablet PO (11:46)
[2020-04-10] MEDS: Insulin Lispro 100 UNIT/ML INSULN.PEN SC ×2 (11:49→21:35)
[2020-04-10 11:55] LABS: Bedside Glucose 206 mg/dL (70-110)
[2020-04-10] MEDS: Tamsulosin HCl 0.4 MG Capsule PO (17:12)
[2020-04-10 19:21] LABS: Bedside Glucose 137 mg/dL (70-110)
[2020-04-10] MEDS: Atorvastatin Calcium 40 MG Tablet PO (21:20)
[2020-04-10 22:31] LABS: Bedside Glucose 179 mg/dL (70-110)
[2020-04-11] VITALS (8 sets, daily range): BP systolic 153–159; BP diastolic 76–89; PULSE 93–110; RESP 18; TEMP 36.7–37; O2SAT 94–97; BMI 25.0
[2020-04-11] MEDS: Heparin Injection (Vial) 5,000 UNIT/ML VIAL 5000 UNIT SC ×2 (05:36→14:28)
[2020-04-11 07:06] LABS: Bedside Glucose 131 mg/dL (70-110)
[2020-04-11] MEDS: Aspirin 81 MG TAB.CHEW PO (08:38)
[2020-04-11] MEDS: Famotidine 20 MG Tablet PO (08:38)
[2020-04-11] MEDS: Fenofibrate 145 MG Tablet PO (08:38)
[2020-04-11] MEDS: Menthol/Lanolin/Calamine/Znox 113 GM Tube 1 APPLIC TOPICAL (08:40)
[2020-04-11] MEDS: Ciprofloxacin 400 MG/200 ML BAG 200 MG IV (08:45)
[2020-04-11] MEDS: Insulin Lispro 100 UNIT/ML INSULN.PEN SC (11:04)
[2020-04-11] MEDS: Loperamide 2 MG Capsule PO (11:04)
[2020-04-11 11:20] LABS: Bedside Glucose 179 mg/dL (70-110)
--- NOTE | 2020-04-11 11:20 | CASEMGMT ---
SWATI reviewed therapy notes and noted patient did not do well. SWATI met with patient, introduced self and role at [facility]. SWATI asked patient about his discharge plan. He said his went to [facility] in the past and he would like to go there. SWATI told him SWATI will work on making the referral. SWATI called [facility] with referral and also faxed information. SW called patient's and had issues getting through and then patient's son called in to talk with SW for patient's . SW filled him in letting him know that SW spoke with patient this am and he did say he prefers to go to [facility]. SW told him the referral was made and the doctor thinks patient will be discharged tomorrow. He thanked SW for calling and updating them on the plan. Plan: [facility] pending their acceptance and patient being medically ready. Lilliam DAS
--- NOTE | 2020-04-11 12:45 | TREXTCAR_ITS ---
- Diet 04/10/20 14:58 Diet: Cardiac/Low Cholesterol, ADA diet Food consistency:: Mechanical Soft/Ground Liquid Consistency:: Regular/Thin Type of Dietary Supplement:: Glucerna Shake TID Is pt able to select menu?: No Diet Comments: straw/van glucerna (no cj); van ensure pudding BID w/ lunch & dinner - Suggestions for Active Care Change Position every (hours): 3 Hours to sit in a chair: 2 Times a day to sit in chair: 3 - Therapies Weight Bearing: Weight bearing as tolerated Physical Therapy: Eval and Treat Occupational Therapy: Eval and Treat Speech Therapy: Eval and Treat - Problem/Diagnosis (1) Stage III chronic kidney disease Status: Chronic Current Visit: Yes (2) Benign prostatic hyperplasia Status: Chronic Current Visit: Yes (3) Hypertension Status: Chronic Current Visit: Yes (4) Hyperlipidemia Status: Chronic Current Visit: Yes (5) Type 2 diabetes mellitus Status: Chronic Current Visit: Yes (6) SIRS (systemic inflammatory response syndrome) Status: Acute Current Visit: Yes (7) Acute cystitis Status: Suspected Current Visit: Yes - Allergies/Procedures Done in Hospital Allergies/Adverse Reactions: Allergies No Known Allergies Allergy (Verified 04/08/20 17:30) - Type of Care/Length of Stay Estimated LOS: Convalescent Care Less Than 30 days Type of Care Needed: Skilled Rehab Potential: Fair Prognosis: Fair - Additional Orders/Day of Discharge H&P will serve as current which was dated: 04/08/20 Day of Discharge: 04/11/20 - Dietary and Speech Recommendations Dietitian Recommendations/Changes: Will change diet to cardiac/carbohydrate- controlled. Will d/c glucerna shake 120 ml w/ medpass and continue 240 ml with meals. - Follow Up Care Primary Care Physician: Louis Shelby,Out of [NON-STAFF] - 2 Days Please follow up with your Primary Care Physician in: 1 week.
--- NOTE | 2020-04-11 13:13 | PCM.PROGNOTE ---
Patient Problems: Active and Suspected Problems Acute cystitis (Suspected) SIRS (systemic inflammatory response syndrome) (Acute) Subjective: Chief complaint: Follow-up after admission for SIRS due to acute cystitis. Patient seen and examined. No acute events overnight. I saw the patient in early this morning and he complained of stomach and urine problems. He still having some diarrhea. He mentioned that when he go for urinate, he does have diarrhea at the same time. I came to see the patient again later today, he felt better after he was started on Imodium. He went to the bathroom, have a more formed bowel movement. He is feeling better. His vital signs are stable. - Physical Exam Vitals/I&O's: Vital Signs Temp Pulse Resp BP Pulse Ox 98.6 F 105 H 18 159/89 H 94 04/11/20 08:32 04/11/20 10:49 04/11/20 08:32 04/11/20 08:32 04/11/20 08:32 Oxygen Flow Rate (L/min) 0.5 Oxygen Delivery Method Room Air Weight: 154 lb 15.759 oz Body Mass Index (BMI) 25.0 Finger Stick Blood Glucose 204 Intake and Output for Last 24 Hours 04/09/20 04/10/20 04/11/20 23:59 23:59 23:59 Intake Total 2686.67 / 2686.67 2653.33 / 2653.33 840 / 840 Output Total 200 / 200 100 / 100 Balance 2486.67 / 2486.67 2653.33 / 2653.33 740 / 740 General: Alert, Oriented x3, Cooperative, No apparent distress HEENT: Atraumatic, PERRLA, EOMI, Normocephalic Oral: Moist Mucosa, No Gingival or Mucosal Lesions/ Ulcerations Neck: Supple, No JVD, Negative Carotid Bruits, Trachea Midline, Thyroid Normal Size and Texture Lungs: Clear to auscultation, Normal air movement, No rhonchi, No wheeze, No rales, Diminished Cardiovascular: Regular rate, Regular Rhythm, Normal S1, Normal S2, PMI Normal Abdomen: Bowel Sounds Present, Soft, Non Tender, Non-Distended, No Hepato-splenomegaly Extremities: No clubbing, No cyanosis, No edema Skin: No rashes, No breakdown Lymphatic: No Cervical, Supraclavicular, or Inguinal Adenopathy Neurological: Cranial nerves II-XII grossly intact, Neuro grossly intact Psych/Mental Status: Normal Affect, Appropriate Microbiology Past 72 Hours 04/09/20 08:00 Blood Culture (Wb) - Anticubital Left Blood Culture - Preliminary No growth in 48 hours. 04/10/20 08:00 Stool C. difficile DNA Amplification - Final 04/08/20 09:55 Urine, Clean Catch Urine Culture - Final Enterococcus faecalis Laboratory Results 04/10/20 17:10: POC Glucose 137 H 04/10/20 21:30: POC Glucose 179 H 04/11/20 06:46: POC Glucose 131 H 04/11/20 10:59: POC Glucose 179 H Current Medications Acetaminophen (Tylenol) 650 mg PO Q6H PRN PRN PRN Reason: Pain Score 1-10/Temp > 100.7 F Last Admin: 04/10/20 20:40 Dose: 650 mg Documented by: Acetaminophen (Tylenol) 650 mg RECTAL Q6H PRN PRN PRN Reason: fever >100.7 Last Admin: 04/09/20 04:59 Dose: 650 mg Documented by: Aspirin (Aspirin, Baby) 81 mg PO DAILY@0800 [facility] Last Admin: 04/11/20 08:38 Dose: 81 mg Documented by: Atorvastatin Calcium (Lipitor) 40 mg PO QHS [facility] Last Admin: 04/10/20 21:20 Dose: 40 mg Documented by: Calamine/Phenol (Calmoseptine Ointment) 1 applic TOPICAL BID [facility]; Protocol Last Admin: 04/11/20 08:40 Dose: 1 applic Documented by: Dextrose (D50w Syringe) 0 gm IV X1 PRN; Protocol PRN Reason: Hypoglycemia Famotidine (Pepcid) 20 mg PO DAILY [facility] Last Admin: 04/11/20 08:38 Dose: 20 mg Documented by: [facility] Last Admin: 04/11/20 08:38 Dose: 145 mg Documented by: Glucagon () 1 mg IM .X1 PRN PRN Reason: Hypoglycemia Heparin Sodium (Porcine) (Heparin Na) 5,000 unit SC Q8 [facility] Last Admin: 04/11/20 05:36 Dose: 5,000 unit Documented by: Sodium Chloride () 250 mls @ 15 mls/hr IV .[id number] PRN PRN Reason: Saline Flush Sodium Chloride () 250 mls @ 15 mls/hr IV .[id number] PRN PRN Reason: Additional IVPB Infusion Ciprofloxacin (Cipro) 400 mg in 200 mls @ 200 mls/hr IV DAILY [facility] Last Infusion: 04/11/20 09:49 Dose: Infused Documented by: Insulin Glargine (Lantus (Bk)) 20 units SC DAILY [facility] Last Admin: 04/11/20 08:41 Dose: 20 units Documented by: Insulin Human Lispro (Humalog Kwikpen (Bk)) 0 unit SC ACHS [facility]; Protocol Last Admin: 04/11/20 11:04 Dose: 1 u Documented by: Loperamide HCl (Imodium) 2 mg PO Q4H PRN PRN PRN Reason: Diarrhea Last Admin: 04/11/20 11:04 Dose: 2 mg Documented by: Ondansetron HCl (Zofran) 4 mg IV Q8H PRN PRN PRN Reason: NAUSEA/VOMITING Last Admin: 04/09/20 03:22 Dose: 4 mg Documented by: Sodium Chloride () 10 - 40 ml IV UD PRN PRN Reason: SALINE FLUSH Last Admin: 04/09/20 03:23 Dose: 10 ml Documented by: Tamsulosin HCl (Flomax) 0.4 mg PO DAILY@1730 [facility] Last Admin: 04/10/20 17:12 Dose: 0.4 mg Documented by: Zolpidem Tartrate (Ambien (Generic)) 5 mg PO QHS PRN PRN PRN Reason: INSOMNIA Medical Necessity - Tobacco Use Smoking Status: Former smoker Assessment/Plan All Active Problems SIRS (systemic inflammatory response syndrome) (Acute) This is an 84 years old male patient presented to the emergency room because of 3 days history of weakness, nausea and dysuria, found to have SIRS attributed to probable acute cystitis and he is being admitted for treatment. He had an episode after admission were reportedly, he was found in the floor, confused and lethargic but patient is denying. #1 SIRS/acute cystitis: He is on IV ciprofloxacin. He has been afebrile overnight, other vital signs are stable. Leukocytosis resolved. Urine culture revealed Enterococcus faecalis, sensitivity reviewed. Blood cultures showed no growth in 48 hours. Chest x-ray showed no acute findings. Lactic acid was normal. COVID-19 PCR was negative. Patient was seen by PT OT and recommended placement to shelter facility. Plan to continue same treatment, awaiting insurance approval for SNF placement. #2 reported fall/confusion/lethargy: Not sure if this is real. Patient remained alert and oriented, denied any focal deficits. He denied any symptoms anymore, remained alert and alert x3. CTA head and neck showed no acute findings. #3 type 2 diabetes mellitus: Blood sugar under better control, hemoglobin A1c was 10.3% on September,. Continue Tresiba and sliding scale, continue Victoza. #4 hypertension: Blood pressure stable, keep holding lisinopril and Bystolic. #5 stage III chronic kidney disease: Creatinine was 1.73 years ago, today it is 1.7 as well. Yesterday's creatinine is 1.76, stable at baseline. No blood work in the system since 2017. #6 benign prostatic hypertrophy: Continue Flomax. #7 DVT prophylaxis: Subcu heparin. This note was generated with [employer] dictation software. It may contain incorrect words, spelling, and punctuation that were not noted in checking the note before signing. Inpatient E&M: 38360 Subs Hosp L2
--- NOTE | 2020-04-11 13:38 | CASEMGMT ---
Addendum entered by Lilliam Castillo 04/11/20 13:55: SWATI received a phone call from Cathleen at [facility] and they can accept patient. SW told her SW will fax the orders. SW explained we are waiting on some test results and then SW will set up transport. Lilliam DAS Original Note: Physician is now going to discharge patient today. SWATI called [facility] to see if they are able to accept patient. She said she will check with the team and get back to . SWATI spoke with patient and his . SW let them know that patient is now going to go today. SWATI explained that patient will go by wheelchair and this is not covered by insurance. SWATI explained it will be a $60 base fee and then $6 per mile. He verbalized understanding. Await call from [facility] and then SW will set up transport and fax orders. Lilliam DAS
--- NOTE | 2020-04-11 14:34 | CASEMGMT ---
Patient is ready for discharge. SWATI faxed orders. SWATI completed convalescent on HENS. SWATI called [facility] and arranged for patient to get picked up at 3p. They are going to send a cot, but bill it as a wheelchair. SWATI notified RN who let patient know, payroll secretary, Cathleen at [facility], and patient's and step daughter in law. SWATI also let them know about the cost of wheelchair van and that patient will get billed. They thanked SWATI for the help. Plan: [facility] under skilled level of care on a convalescent stay. [facility] will transport patient via cot billed as wheelchair van. Lilliam STRINGER MSW
--- NOTE | 2020-04-11 14:39 | NURSING ---
This RN called and gave report to RODRIGO Stewart at [facility].
--- NOTE | 2020-04-11 21:00 | PCM.DC.SUM ---
Discharge Date and Diagnosis Date of Admission: 04/08/20 Date of Discharge: 04/11/20 - Primary Discharge Diagnosis Acute Problems: #1 Enterococcus faecalis acute cystitis. #2 systemic inflammatory response syndrome. #3 debility/functional decline. - Secondary Discharge Diagnosis Chronic Problems: Chronic Problems Stage III chronic kidney disease (Chronic) Benign prostatic hyperplasia (Chronic) Hypertension (Chronic) Hyperlipidemia (Chronic) Type 2 diabetes mellitus (Chronic) Hospital Course and Treatment Imaging Results: Clinical Impression(s) from Imaging Studies Brain CT 04/08/20 07:30 IMPRESSION: Age-related changes. Small hyperdense nodule near the foramen of Rivas, possibly a small colloid cyst. Electronically Signed: Luis Fernando Kapoor DO at 19:44 EDT Tel [phone], Service support , ADDENDUM: 04/08/202008 IMPRESSION: Age-related changes. Small hyperdense nodule near the foramen of Rivas, possibly a small colloid cyst. N.B. : The above information has been verbally conveyed by Luis Fernando Kapoor DO to Ar Lopez RN, on 04/08/2020 20:02:53 (ET). Electronically Signed: Luis Fernando Kapoor DO at 19:44 EDT Tel [phone], Service support , Chest X-Ray 04/08/20 09:21 IMPRESSION: Normal x-ray examination of the chest. Electronically Signed: Luis Fernando Kapoor DO at 12:48 EDT Tel [phone], Service support , Head/Neck CTA 04/08/20 19:00 IMPRESSION: Minimal focal narrowing at the mid segment of the basilar artery. Hypoplastic posterior communicating arteries. Mild atherosclerotic calcifications at carotid bulbs without hemodynamically significant stenosis. N.B. : The above information has been verbally conveyed by Luis Fernando Kapoor DO to Ar Lopez RN, on 04/08/2020 20:03:09 (ET). Electronically Signed: Luis Fernando Kapoor DO at 19:53 EDT Tel [phone], Service support , Operations: None Procedures: EKG Summary of Care Provided: Patient seen and examined on the day of discharge and appeared to be stable to be discharged home. Apart from weakness which is improving, no other major complaints. Dysuria and diarrhea improved after started on Imodium. Vital signs are stable. The patient is a 84 year old M presented to the emergency room because of 3-day history of weakness, nausea and dysuria and he was found to have SIRS which is attributed to acute cystitis. Patient has history of UTI and pyelonephritis 3 years ago. He was admitted to [facility] floor, started on IV fluids and IV antibiotics. Chest x-ray showed no acute findings. Over 19 PCR was negative. Initially, he was treated with IV Rocephin and later switched to IV ciprofloxacin based on urine culture. On the day of admission and after patient arrived to the floor, he had an episode of being confused, found on the floor and stroke alert was called. CT scan brain done and showed no acute findings. CTA of the head and neck done also and showed no hemodynamically significant vascular disease or stenosis. Next day when I evaluated the patient, patient was frustrated and upset about what happened the night before. He was alert and noted x3. He mentioned that he was not confused and was aware of surroundings. He mentioned that he did not fall just he was weak and could not get up. He remained lucid and he had no focal deficit on physical examination. He refused to go for MRI brain to rule out stroke. But I do not think that this patient had any alarming symptoms of stroke. Patient had some diarrhea and abdominal discomfort. Stools for C. difficile was negative. Stool for enteric vaginosis was negative. He does have stage III chronic kidney disease and his kidney function is remained stable. Patient was seen by PT OT and recommended placement to long term facility. [facility] to [facility] in a stable medical condition, discharged on ciprofloxacin 500 mg p.o. twice daily to complete total of 7 days of treatment, continued on his previous home medications without any changes, recommended follow-up with PCP in 1 week. - Physical Exam Vitals/I&O's: Vital Signs Temp Pulse Resp BP Pulse Ox 98.1 F 110 H 18 153/87 H 97 04/11/20 14:27 04/11/20 14:27 04/11/20 14:27 04/11/20 14:27 04/11/20 14:27 Oxygen Flow Rate (L/min) 0.5 Oxygen Delivery Method Room Air Weight: 154 lb 15.759 oz Body Mass Index (BMI) 25.0 Finger Stick Blood Glucose 204 Intake and Output for Last 24 Hours 04/09/20 04/10/20 04/11/20 23:59 23:59 23:59 Intake Total 2686.67 / 2686.67 2653.33 / 2653.33 840 / 840 Output Total 200 / 200 100 / 100 Balance 2486.67 / 2486.67 2653.33 / 2653.33 740 / 740 General: Alert, Oriented x3, Cooperative, No apparent distress HEENT: Atraumatic, PERRLA, EOMI, Normocephalic Oral: Moist Mucosa, No Gingival or Mucosal Lesions/ Ulcerations Neck: Supple, No JVD, Negative Carotid Bruits, Trachea Midline, Thyroid Normal Size and Texture Lungs: Clear to auscultation, No rhonchi, No wheeze, No rales, Diminished Cardiovascular: Regular rate, Regular Rhythm, Normal S1, Normal S2, PMI Normal Abdomen: Bowel Sounds Present, Soft, Non Tender, Non-Distended, No Hepato-splenomegaly Extremities: No clubbing, No cyanosis, No edema Skin: No rashes, No breakdown Lymphatic: No Cervical, Supraclavicular, or Inguinal Adenopathy Neurological: Cranial nerves II-XII grossly intact, Neuro grossly intact Psych/Mental Status: Normal Affect, Appropriate Microbiology Past 72 Hours 04/11/20 08:00 Stool Enteric Bacteriology - Final 04/09/20 08:00 Blood Culture (Wb) - Anticubital Left Blood Culture - Preliminary No growth in 48 hours. 04/10/20 08:00 Stool C. difficile DNA Amplification - Final 04/08/20 09:55 Urine, Clean Catch Urine Culture - Final Enterococcus faecalis Laboratory Results 04/10/20 21:30: POC Glucose 179 H 04/11/20 06:46: POC Glucose 131 H 04/11/20 10:59: POC Glucose 179 H Home Medications: Medications to take at Discharge Fenofibrate [Tricor] 145 mg PO DAILY 10/04/16 Nebivolol HCl [Bystolic (Beta Saniya)] 5 mg PO DAILY 10/04/16 Tamsulosin HCl [Flomax] 0.4 mg PO DAILY@1730 #30 capsule 10/07/16 Fenofibrate Nanocrystallized [Fenofibrate] 145 mg PO DAILY 04/08/20 Insulin Degludec [Tresiba Flextouch U-100] 20 unit SQ DAILY 04/08/20 Liraglutide [Victoza] 1.8 mg SQ DAILY 04/08/20 Lisinopril [Zestril] 5 mg PO DAILY 04/08/20 Ciprofloxacin [Cipro] 500 mg PO BID #10 tab 04/11/20 Loperamide [Imodium] 2 mg PO Q4H PRN PRN #20 cap 04/11/20 Following Prescrptions Were Given to Patient: Ciprofloxacin [Cipro] 500 mg PO BID #10 tab Prescription Printed Loperamide [Imodium] 2 mg PO Q4H PRN PRN #20 cap PRN Reason: Diarrhea Prescription Printed Primary Care Physician: Louis Doctor,Out of [NON-STAFF] - 2 Days Please follow up with your Primary Care Physician in: 1 week. Patient Instructions: ED CYSTITIS Male Adult Disposition: [facility] facility Minutes spent on discharge:: 28 Patient Condition:: Stable Medical Necessity - Tobacco Use Smoking Status: Former smoker Meaningful Use Info Meaningful Use Diagnoses (Choose all that apply): None applicable Inpatient E&M: 61395 [facility]
== END 2020-04-11 15:32 | disposition skilled nursing facility (03) | DRG 690 ==
LOC: ED 12:20 → MS3 14:29 → PCU 20:27
PROVIDERS: Emergency Medicine; Internal Medicine; Admitting Provider Hospitalist; Emergency Provider Physician Assistant Medical; Visit Provider Hospitalist
DX: N30.00 Acute cystitis without hematuria (principal); B95.2 Enterococcus as the cause of diseases classified elsewhere; E11.22 Type 2 diabetes mellitus with diabetic chronic kidney disease; I12.9 Hypertensive chronic kidney disease with stage 1 through stage 4 chronic kidney disease, or unspecified chronic kidney disease; N18.3 Chronic kidney disease, stage 3 (moderate); R29.810 Facial weakness; E11.65 Type 2 diabetes mellitus with hyperglycemia; N40.0 Benign prostatic hyperplasia without lower urinary tract symptoms; I44.0 Atrioventricular block, first degree; E78.5 Hyperlipidemia, unspecified; Z87.440 Personal history of urinary (tract) infections; Z79.4 Long term (current) use of insulin; Z79.899 Other long term (current) drug therapy; Z87.891 Personal history of nicotine dependence; R29.711 NIHSS score 11
CPT/HCPCS: 36415; 70450; 70496; 70498; 71046; 80048; 80053; 80061; 81001; 82962; 83036; 83605; 83690; 84443; 85025; 85610; 87040; 87077; 87086; 87088; 87186; 87493; 87506; 87635; 92526; 92610; 93005; 94762; 94799; 97110; 97116; 97162; 97166; 97530; 97535; 97802; 99251; 99285; 99406; J7030; J7040; J7050; Q9967; A4216; G0463; J0696; J0744; J2405; U0003